=== PATIENT | female | born 1955 | race Caucasian/White ===

== ENCOUNTER → 2021-06-15 13:32 | Outpatient (CLI) | payer OTHER, SELFPAY ==
--- NOTE | 2021-06-15 | DI.RAD.S_ITS ---
PROCEDURE: XR ELBOW RT MIN 3V INDICATIONS: Pain in right elbow TECHNIQUE: 3 views of the elbow were acquired. COMPARISON: None. FINDINGS: Bones: No fractures or dislocations. No suspicious bony lesions. Soft tissues: No elbow joint effusion. No suspicious soft tissue calcifications. IMPRESSION: No evidence acute bony abnormality of the right elbow. If clinical suspicion and/or symptoms persist, further assessment with repeat plain films, or advanced imaging (e.g., CT, MRI, or bone scan) may be helpful for further assessment. Dictated by: Jeremias Orozco M.D. on 06/15/2021 at 17:46 Approved by: Jeremias Orozco M.D. on 06/15/2021 at 17:46
== END ==
PROVIDERS: PCP Physician Assistant; Referring Provider Physician Assistant; Visit Provider Physician Assistant
DX: M25.521 Pain in right elbow (principal)
CPT/HCPCS: 73080

== ENCOUNTER → 2023-05-30 11:23 | Outpatient (CLI) | payer MEDICARE, OTHER, SELFPAY ==
--- NOTE | 2023-05-30 11:26 | DI.US.S_ITS ---
PROCEDURE: US THYROID INDICATIONS: NODULE TECHNIQUE: Real-time scanning was performed of the thyroid gland, with image documentation. COMPARISON: None. FINDINGS: The thyroid appears heterogeneously echogenic measuring 4.6 x 1.1 x 1.3 cm on the right and 4.0 x 1.0 x 1.2 cm on left. The isthmus measures 3 mm in thickness. Nodule number: 1 Location: Upper pole, right lobe Size: 6 x 3 x 5 mm Composition: Solid Echogenicity: Hypoechoic Shape: Wider than tall Margins: Smooth Echogenic foci: None Total points: 3 ACR TI-RADS category: TI-RADS 3, mildly suspicious Nodule number: 2 Location: Upper pole, right thyroid Size: 6 x 3 x 6 mm Composition: Solid Echogenicity: Hypoechoic Shape: Wider than tall Margins: Small with Echogenic foci: None Total points: 3 ACR TI-RADS category: TI-RADS 3, mildly suspicious Nodule number: 3 Location: Mid pole, right thyroid Size: 23 x 28 x 9 mm Composition: Solid and cystic Echogenicity: Isoechoic Shape: Wider than tall Margins: Ill-defined Echogenic foci: Punctate echogenic foci Total points: 5 ACR TI-RADS category: TI-RADS 4, moderately suspicious. FNA indication Nodule number: 4 Location: Lower pole, right thyroid Size: 8 x 8 x 4 mm Composition: Hypoechoic Echogenicity: Hypoechoic Shape: Wider than tall Margins: Small with Echogenic foci: Punctate echogenic foci Total points: 7 ACR TI-RADS category: TI-RADS5 highly suspicious. Follow-up. Nodule number: 5 Location: Lower pole, right thyroid Size: 21 x 7 by 11 mm Composition: Solid and cystic Echogenicity: Isoechoic Shape: Wider than tall Margins: Indistinct Echogenic foci: None Total points: 2 ACR TI-RADS category: TI-RADS 2, not suspicious Nodule number: 6 Location: Lower pole left thyroid Size: 4 x 1 x 4 mm Composition: Solid Echogenicity: Hypoechoic Shape: Wider than tall Margins: Small with Echogenic foci: Punctate echogenic foci Total points: 7 ACR TI-RADS category: TI-RADS5 highly suspicious. Follow-up IMPRESSION: Recommend FNA of nodule 3, TI-RADS 4 measuring 23 x 28 x 9 mm in mid pole right thyroid. ACR TI-RADS definitions and recommendations: TI-RADS 1 (benign): 0 points. FNA not needed. TI-RADS 2 (not suspicious): 2 points. FNA not needed. TI-RADS 3 (mildly suspicious): 3 points. * FNA if 2.5 cm or larger, follow up if 1.5 cm or larger (at 1, 3, and 5 years). TI-RADS 4 (moderately suspicious): 4-6 points. * FNA if 1.5 cm or larger, follow up if 1 cm or larger (at 1, 2, 3, and 5 years). TI-RADS 5 (highly suspicious): 7 points or more. * FNA if 1 cm or larger, follow up if 0.5 cm or larger (every year for 5 years). Dictated by: Ernesto Mcknight M.D. on 05/30/2023 at 15:09 Approved by: Ernesto Mcknight M.D. on 05/30/2023 at 15:30
--- NOTE | 2023-05-30 11:26 | DI.RAD.S_ITS ---
Bone Density Report Name: MARLO SEGURA Age: 67 Sex: Female Ethnicity: White Date of : 1955 Indication: postmenopausal; screening for osteoporosis; Referring Provider: NIKITA SALMERON Study: Bone densitometry was performed. Exam Date: May 30, 2023 Accession number: [id number] Bone Density: Region BMD T-score Z-score Classification AP Spine(L1-L4) 0.752 -2.7 -0.9 Osteoporosis Femoral Neck (Left) 0.609 -2.2 -0.6 Osteopenia Total Hip (Left) 0.729 -1.7 -0.5 Osteopenia Femoral Neck (Right) 0.616 -2.1 -0.6 Osteopenia Total Hip (Right) 0.740 -1.7 -0.4 Osteopenia Total Hip Mean 0.734 -1.7 -0.5 Osteopenia World Health Organization criteria for BMD impression classify patients as: Normal (T-score at or above -1.0), Osteopenia (T-score between -1.0 and -2.5), or Osteoporosis (T-score at or below -2.5). 10-year Fracture Risk: FRAX not reported because: Some T-score for Spine Total or Hip Total or Femoral Neck at or below -2.5 Treated for osteoporosis Impression: The patient has osteoporosis, based on the Total Spine T-score. Discussion: It is important to ask patients whether they are taking their medications and to encourage continued and appropriate compliance with their osteoporosis therapies to reduce fracture risk. It is also important to review their risk factors and encourage appropriate calcium and vitamin D intakes, exercise, fall prevention and other lifestyle measures. Follow-Up: Consider a repeat BMD and Vertebral Fracture Assessment (VFA) exam in 2 years or sooner if medically necessary, to reassess this patient's status. Reported by: AGNIESZKA FELICIANO M.D. on 05/30/2023 12:20:00 PM.
== END ==
PROVIDERS: PCP Nurse Practitioner Family; Referring Provider Nurse Practitioner Family; Visit Provider Nurse Practitioner Family
DX: M81.8 Other osteoporosis without current pathological fracture (principal); E04.2 Nontoxic multinodular goiter; Z79.83 Long term (current) use of bisphosphonates
CPT/HCPCS: 76536; 77080

== ENCOUNTER → 2023-07-11 14:39 | Outpatient (CLI) | payer MEDICARE, OTHER, SELFPAY ==
[2023-07-13 14:44] LABS: Candida species Negative (Negative); Gardnerella vaginalis Negative (Negative); Trichomoas vaginalis Negative (Negative)
== END ==
PROVIDERS: PCP Nurse Practitioner Family; Visit Provider Physician Assistant Medical
DX: N89.8 Other specified noninflammatory disorders of vagina (principal)
CPT/HCPCS: 87480; 87510; 87660

== ENCOUNTER → 2023-07-17 13:55 | Outpatient (CLI) | payer MEDICARE, OTHER, SELFPAY ==
--- NOTE | 2023-07-17 | PATH_ITS ---
Note [facility] Accession Number: [id number] TESTS RESULT FLAG UNITS REF RANGE LAB Clinician Provided Cytology Information No. of containers..06 Previously Prepared Cytology Slide 35 Unknown Storage/container code(s) Source: RIGHT THYROID NODULE #3 DIAGNOSIS: RIGHT THYROID NODULE #3, FINE NEEDLE ASPIRATION. NEGATIVE FOR MALIGNANT CELLS. MARGINALLY ADEQUATE FOR EVALUATION. FEW FOLLICULAR GROUPS PRESENT. FAVOR BENIGN FOLLICULAR (GOITEROUS) NODULE (BETHESDA CATEGORY II), SEE COMMENT. COMMENT: MICROSCOPIC EXAMINATION REVEALS A HYPOCELLULAR/MILDLY CELLULAR ASPIRATE, COMPOSED OF COLLOID, FEW FOLLICULAR GROUPS (MORE THAN SIX GROUPS THAT ARE REQUIRED FOR ADEQUACY) WITHOUT SIGNIFICANT CYTOLOGIC OR ARCHITECTURAL ATYPIA, AND BACKGROUND MACROPHAGES. THESE FINDINGS FAVOR A BENIGN FOLLICULAR (GOITEROUS) NODULE. CORRELATION WITH CLINICAL AND RADIOGRAPHIC FINDINGS IS RECOMMENDED TO ENSURE THAT THE NODULE HAS BEEN ADEQUATELY SAMPLED. ACCORDING TO THE B[place]DA REPORTING SYSTEM FOR THYROID CYTOPATHOLOGY, THE RISK OF MALIGNANCY IN THE CATEGORY BENIGN-CATEGORY II IS 0-3%; THEREFORE RECOMMEND CONTINUED ULTRASOUND SURVEILLANCE WITH REPEAT FNA IF THE NODULE SIGNIFICANTLY INCREASES IN SIZE. Pathologist ICD10: 01 E04.2 Signed out by: Brennan Nagy MD, Pathologist NPI- [id number] Performed by: Aurelio Jackson, Media Relations Associate ([facility]) Gross description: 01 30 CC, COLORLESS, CLEAR RECIEVED: IN CYTOLYT WITH 8 ALCOHOL FIXED AND 8 QUICK STAINED SLIDES ALSO 1 RNA VIAL WILL ON 03-01-2025.VO /VDU 07/18/2023 1103 Local FLAG LEGEND: L-Low Normal,H-High Normal,LL-Alert Low,HH-Alert High <-Panic Low,>-Panic High,A-Abnormal,AA-Critical Abnormal Performed at: 01 =Z [facility] [address] [place] [address] [address], [place] [address] Madan Kelly MD, Performed at: 01 [facility] [address] [place] [address] [address], [place], [place] [id number] MD Madan Kelly MD Phone: [phone]
--- NOTE | 2023-07-17 13:56 | DI.US.S_ITS ---
PROCEDURE: US FINE NEEDLE ASPIRATION INDICATIONS: Nontoxic multinodular goiter TECHNIQUE: The indications, alternatives, benefits, risks, and complications of the procedure were explained to the patient. Written informed consent was obtained and placed in the chart. The area of interest was examined sonographically and a site was chosen for ultrasound guided percutaneous sampling. The skin was prepared and draped in the usual fashion, and anesthetized with 1% lidocaine infiltrated from the skin down to the lesion. Multiple passes were then performed, with contents emptied into an appropriate pathology specimen container. A bandage was applied to the area of access at completion of the study. COMPARISON: Ultrasound thyroid 05/30/2023. FINDINGS: Location(s) of lesion(s) sampled: Right lobe, nodule #3. On prior study [place]: 25 gauge hypodermic needles. Number of passes: 9 passes total (pathologist indicated he needs additional samples). Medications: 1% lidocaine for local anaesthesia. Complications: None. IMPRESSION: Successful ultrasound-guided right lobe thyroid #3. lesion fine needle aspiration, with cytology results pending. Note: Due to size criteria only the above lesion was biopsied as noted above. Dictated by: Ernesto Mcknight M.D. on 07/19/2023 at 16:33 Approved by: Ernesto Mcknight M.D. on 07/19/2023 at 16:36
== END ==
PROVIDERS: PCP Nurse Practitioner Family; Referring Provider Nurse Practitioner Family; Visit Provider Nurse Practitioner Family
DX: E04.2 Nontoxic multinodular goiter (principal)
CPT/HCPCS: 10005

== ENCOUNTER → 2023-08-01 10:54 | Outpatient (CLI) | payer MEDICARE, OTHER, SELFPAY ==
[2023-08-01 15:12] LABS: Urine N gonorrhoeae NOT DETECTED
[2023-08-01 15:16] LABS: Urine Chlamydia NOT DETECTED
== END ==
PROVIDERS: PCP Nurse Practitioner Family; Referring Provider Physician Assistant Medical; Visit Provider Physician Assistant Medical
DX: Z11.3 Encounter for screening for infections with a predominantly sexual mode of transmission (principal)
CPT/HCPCS: 87491; 87591

== ENCOUNTER → 2023-08-20 13:43 | Outpatient (CLI) | payer MEDICARE, OTHER, SELFPAY ==
[2023-08-21 06:10] LABS: RPR Screen Non Reactive (Non Reactive)
[2023-08-22 17:55] LABS: Hepatitis B Surface Antigen NEGATIVE s/c (NEGATIVE)
[2023-08-22 18:14] LABS: HIV 1 & 2 Ab/Ag 4th Gen Combo NEGATIVE (NEGATIVE); Hep C Virus Ab w/Reflex Quant NEGATIVE s/c (NEGATIVE)
== END ==
LOC: RESP 13:44
PROVIDERS: PCP Nurse Practitioner Family; Referring Provider Physician Assistant Medical; Visit Provider Physician Assistant Medical
DX: I10 Essential (primary) hypertension (principal); Z51.81 Encounter for therapeutic drug level monitoring; Z11.3 Encounter for screening for infections with a predominantly sexual mode of transmission
CPT/HCPCS: 36415; 86592; 86803; 87340; 87389; 93005

== ENCOUNTER → 2023-09-05 08:43 | Outpatient (CLI) | payer MEDICARE, OTHER, SELFPAY ==
--- NOTE | 2023-09-05 08:45 | DI.RAD.S_ITS ---
PROCEDURE: XR HIP W PEL IF DONE LT 2V INDICATIONS: Pain in left hip TECHNIQUE: 2 views of the hip were acquired. COMPARISON: None. FINDINGS: Bones: Moderate degenerative changes of the pubic symphysis. Mild degenerative changes of bilateral hip joints. No acute fracture or dislocation. Soft tissues: No suspicious soft tissue calcifications or masses. IMPRESSION: No acute bony abnormality. Dictated by: Meron Berrios M.D. on 09/05/2023 at 13:56 Approved by: Meron Berrios M.D. on 09/05/2023 at 13:57
== END ==
PROVIDERS: PCP Nurse Practitioner Family; Referring Provider Nurse Practitioner Family; Visit Provider Nurse Practitioner Family
DX: M25.552 Pain in left hip (principal)
CPT/HCPCS: 73502

== ENCOUNTER → 2023-09-10 12:05 | Outpatient (CLI) | payer MEDICARE, OTHER, SELFPAY ==
[2023-09-10 12:46] LABS: Appearance Urine UA CLEAR; Bilirubin Urine UA NEGATIVE (NEGATIVE); Color Urine UA YELLOW; Glucose Urine UA NEGATIVE (Negative); Ketones Urine UA NEGATIVE (NEGATIVE); Leukocyte Esterase Urine UA NEGATIVE (NEGATIVE); Nitrite Urine UA NEGATIVE (Negative); Occult Blood Urine UA TRACE-INTACT (Negative); Protein Urine UA NEGATIVE (Negative); Urobilinogen Urine UA 0.2 E.U./dL (0.2)
[2023-09-10 12:56] LABS: Bacteria Urine Few (2-10); RBC Urine None Seen (0-5/HPF); Squamous Epithelial Cell Urine 0-1 /HPF (0-5/HPF); Urine Volume 10mL (spun); WBC Urine 0-1/HPF (0-5/HPF)
[2023-09-10 12:57] LABS: Culture Indicated Urine Cult Not Indicated
[2023-09-10 14:06] LABS: Urine Chlamydia NOT DETECTED; Urine N gonorrhoeae NOT DETECTED
[2023-09-10 14:30] LABS: HIV 1 & 2 Ab/Ag 4th Gen Combo NEGATIVE (NEGATIVE)
[2023-09-11 08:22] LABS: RPR Screen Non Reactive (Non Reactive)
== END ==
PROVIDERS: PCP Nurse Practitioner Family; Referring Provider Nurse Practitioner Family; Visit Provider Nurse Practitioner Family
DX: R87.9 Unspecified abnormal finding in specimens from female genital organs (principal); N89.9 Noninflammatory disorder of vagina, unspecified
CPT/HCPCS: 36415; 81001; 86592; 87389; 87491; 87591

== ENCOUNTER 2023-10-14 03:57 | Emergency (ER) | payer MEDICARE, OTHER, SELFPAY ==
[2023-10-14 04:05] VITALS: BP 122/74; PULSE 80; RESP 18; TEMP 35.9; O2SAT 99
--- NOTE | 2023-10-14 04:10 | DI.RAD.S_ITS ---
PROCEDURE: XR HUMERUS RT 2V INDICATIONS: right upper arm pain TECHNIQUE: 2 views of the humerus were acquired. COMPARISON: None. FINDINGS: Bones: Impacted fracture of the surgical neck of the humerus. Fracture appears to extend into the greater tuberosity with mild displacement. No suspicious bony lesions. Soft tissues: No suspicious soft tissue calcifications. Small foci of rotator cuff calcific tendinopathy. IMPRESSION: Comminuted and impacted fracture of the right humeral head/neck. Findings are concordant with preliminary interpretation provided by [facility]. Dictated by: Jermain Gill M.D. on 10/14/2023 at 7:26 Approved by: Jermain Gill M.D. on 10/14/2023 at 7:27
--- NOTE | 2023-10-14 04:15 | PC.NURSE ---
pt was walking up the stairs when she tripped and fell hurting her right upper arm, pt unable to move arm d/t pain, right shoulder lower than the left shoulder, arm placed in a sling upon arrival
[2023-10-14] MEDS: ONDANSETRON 4 MG ODT SL (04:49)
--- NOTE | 2023-10-14 04:49 | ED_ITS ---
HPI - General Adult General Chief complaint: Extremity Injury, Upper Stated complaint: right arm pain Time Seen by Provider: 10/14/23 04:09 Source: patient Mode of arrival: Ambulatory Limitations: no limitations History of Present Illness HPI narrative: 67-year-old female with history of hypertension. Patient had gone down the stairs tonight, tripped over box while walking and fell onto her right arm. She states she thinks it is broken. This happened about 2:00 a.m. this morning. She denies any numbness or tingling protein 16 move normally the elbow wrist and hand. She does feel that the muscles feel tight behind in the scapular area. She states that her shoulder has dislocated before but states it is only ever been treated by chiropractors. She is never required reduction in the emergency department or with Orthopedic surgery. Patient denies any other trauma, denies hitting head, no loss of consciousness, no neck pain, no chest pain or shortness of breath. She does feel nauseated. She states when she throws up she sometimes passes out. She states she did not take 2 500 mg tablet Tylenol which she states has been helpful. He defers any narcotics for pain. She was requesting something for nausea. Related Data Home Medications Medication Instructions Recorded Confirmed losartan 100 1 tab PO DAILY 07/11/23 08/01/23 mg-hydrochlorothiazide 12.5 mg tablet Previous Rx's Medication Instructions Recorded ondansetron 4 mg disintegrating 4 mg PO QID PRN nausea and 10/14/23 tablet vomiting #14 tabs tramadol 50 mg tablet 50 mg PO Q6H PRN pain #10 tabs 10/14/23 Allergies Allergy/AdvReac Type Severity Reaction Status Date / Time diazepam [From Valium] AdvReac Intermediate Vomiting Verified 08/01/23 10:06 Review of Systems Review of Systems ROS Unobtainable: All systems reviewed & are unremarkable except as noted in HPI and below Patient History Medical History (Updated 10/14/23 @ 05:10 by Kristy Paredes DO) Depression (~2006) ADD (attention deficit disorder) (~2019) Osteoporosis (~2016) Acquired syphilis (~1979) Mumps Measles Chicken pox Herpes Abnormal Pap smear of cervix (~1986) Hypertension (~2014) Skin cancer, basal cell (~1996) Surgical History (Updated 07/26/23 @ 20:41 by Christiane Nance) Anesthesia History of abdominoplasty (~2015) History of breast augmentation (~2013) History of tooth extraction (~2013) History of endometrial ablation (~2009) Family History (Updated 07/26/23 @ 20:45 by Christiane Nance) Father Alzheimer's disease Diabetes mellitus History of heart disease Hyperlipidemia Hypertension Mental health problem Stroke Mother Cancer Diabetes mellitus Hypertension Hyperlipidemia Mental health problem Sister Thyroid cancer Hypertension Hyperlipidemia Grandmother Cancer Grandmother Cancer Social History Smoking Status: Never smoker Smoking Status: Never smoker Exam Narrative Exam Narrative: GEN: Patient appears in moderate distress. HEAD: No evidence of trauma, no raccoon/Lehman sign. NECK: Nontender, painless range of motion, trachea midline Negative Nexus criteria, there is no midline line tenderness, distracting injury, altered mental status, neuro deficit, recent EtOH. EYES: PERRLA, EOMI ENT: External inspection normal, trachea is midline, Nares are clear, no septal hematoma, no dental or oral injury, airway is normal and with normal occlusion, No bony tenderness RESP: Chest is nontender and has symmetric movement, no ecchymosis, breath sounds are normal no crackles, wheezes or rales CVS: Heart sounds are normal, no murmur noted, No JVD. ABG/GI: Nontender, soft, normal bowel sounds, no distention, no organomegaly NEURO: Oriented AOx3, neuro is grossly intact, sensation and motor is normal all 4 extremities moving, cranial nerves II through XII are intact, GCS is 15 PSYCH: Normal mood and affect SKIN: Intact, warm and dry, no crepitus and without decubitus BACK: No CVA tenderness, no vertebral tenderness, no step-off's, no crepitus EXT: Patient has pain over the proximal humerus, she has 2+ radial pulses bilaterally equal air value tester, patient has sensation throughout bilateral upper extremities. She has normal flexion-extension abduction abduction of the fingers, wrist and normal flexion-extension of the elbow on the right. Normal range of motion of the left upper extremity and bilateral lower extremities. Initial Vital Signs Initial Vital Signs: Vital Signs Temperature 96.6 F L 10/14/23 04:05 Pulse Rate 80 10/14/23 04:05 Respiratory Rate 18 10/14/23 04:05 Blood Pressure 122/74 10/14/23 04:05 Pulse Oximetry 99 05/27/24 04:05 Oxygen Delivery Method Room Air 10/14/23 04:05 Course Orders Ordered: ED Orders 10/14/23 04:09 XR shoulder RT min 2V Stat 10/14/23 04:10 XR humerus RT 2V Stat Discontinued Medications Ondansetron HCl (Ondansetron 4 Mg Odt) 4 mg SL NOW ONE Stop: 10/14/23 04:45 Last Admin: 10/14/23 04:49 Dose: 4 mg Documented By: Ondansetron HCl (Ondansetron 4 Mg Odt Prepack) 1 bottle MISC DIRECTED ONE Stop: 10/14/23 05:19 Last Admin: 10/14/23 05:33 Dose: 1 bottle Documented By: ALANA Tramadol HCl (Tramadol 50 Mg Prepack) 1 bottle MISC DIRECTED ONE Stop: 10/14/23 05:19 Last Admin: 10/14/23 05:33 Dose: 1 bottle Documented By: ALANA Vital Signs Vital signs: Vital Signs - 8 hr 10/14/23 04:05 10/14/23 05:11 10/14/23 05:30 Temperature 96.6 F L Pulse Rate 80 83 Respiratory Rate 18 Blood Pressure 122/74 136/71 Pulse Oximetry 99 98 Oxygen Delivery Method Room Air 10/14/23 05:30 Temperature Pulse Rate 81 Respiratory Rate Blood Pressure Pulse Oximetry 100 Oxygen Delivery Method Medical Decision Making Imaging Data Extremity x-ray #1: Radiologist's Impression: Impaction fracture of the surgical neck of the humerus also involves the greater tuberosity which is mildly displaced the inferior aspect, small foci of rotator cuff calcific tendinopathy. Mild glenohumeral and acromioclavicular osteoarthritis. [facility] Narrative Medical decision making narrative: 67-year-old female with ground level fall, denies hitting her head neck or back pain but does have pain of the humerus and has impacted fracture of the surgical neck of the humerus. Patient is neurovascularly intact. Placed in sling. She would Tylenol prior to arrival she defers any narcotics. Take some antinausea medication. Plan for follow up with Orthopedic surgery. Discharge Plan Departure Patient Disposition: Home Clinical Impression: Fracture of proximal end of humerus Instructions: DI for Humeral Fracture Activity Restrictions/Additional Instructions: Follow-up with orthopedic surgery in the next week, call to set up an appointment. Contact information is included. You can take Tylenol to a 1000 mg every 6 hours as needed for pain. If in adequate you can take Ultram 1-2 tablets every 6 hours as needed for pain. This medication can make you sleepy do not drive, perform hazardous activities or make any major decisions while taking it. This medication will make you constipated please take a stool softener once to twice daily until stools are soft and regular. You can take Zofran 1 tablet every 6 hours as needed for nausea. Prescription was sent to [facility] in [place] Splint Care: Keep splint clean and dry. Elevated affected body part to decrease swelling. OK to use ice pack on the affected body part. Use for 15-20 minutes each time, for 5-6x per day. If you develop worsening pain, numbness, tingling, discoloration of the affected body part, loosen the splint by loosening the RY wrap, and either see your doctor for an urgent re-assessment, or return to the Emergency Department. Return to the Emergency Department for any new or worsening symptoms. Prescriptions: New ondansetron 4 mg tablet,disintegrating 4 mg PO QID PRN (Reason: nausea and vomiting) Qty: 14 0RF tramadol 50 mg tablet 50 mg PO Q6H PRN (Reason: pain) Qty: 10 0RF No Action losartan-hydrochlorothiazide 100-12.5 mg tablet 1 tab PO DAILY Referrals: Emory Casas MD [Physician] - Jenniffer Reyes RN [Primary Care Provider] - Stand Alone Forms: Patient Portal/API
[2023-10-14 05:11] VITALS: PULSE 83; O2SAT 98
[2023-10-14 05:30] VITALS: BP 136/71; PULSE 81; O2SAT 100
[2023-10-14] MEDS: TRAMADOL 50 MG PREPACK 1 BOTTLE MISC (05:33)
[2023-10-14] MEDS: ONDANSETRON 4 MG ODT PREPACK 1 BOTTLE MISC (05:33)
== END 2023-10-14 05:49 | disposition home or self-care (01) ==
PROVIDERS: Emergency Provider Emergency Medicine; PCP Nurse Practitioner Family
DX: S42.291A Other displaced fracture of upper end of right humerus, initial encounter for closed fracture (principal); W18.09XA Striking against other object with subsequent fall, initial encounter; Y93.01 Activity, walking, marching and hiking
CPT/HCPCS: 73060; 99283

== ENCOUNTER → 2023-10-30 12:43 | Outpatient (CLI) | payer MEDICARE, OTHER, SELFPAY ==
--- NOTE | 2023-10-30 12:44 | DI.CT.S_ITS ---
PROCEDURE: CT ABDOMEN PELVIS WO CON INDICATIONS: Calculus of kidney TECHNIQUE: Axial sections were acquired from the lung bases to the pubic symphysis. Coronal and sagittal reformats were performed. For radiation dose reduction, the following was used: automated exposure control, adjustment of mA and/or kV according to patient size. COMPARISON: None. FINDINGS: Image quality: Diagnostic. Lower Chest: No significant findings. URINARY: Right Kidney: There is an exophytic, lobulated intermediate density mass off the midpole of the right kidney which is incompletely characterized in the absence of intravenous contrast. No hydronephrosis or nephrolithiasis. Right Ureter: No ureterolithiasis or hydroureter. Left Kidney: An ill-defined low-density cystic lesion is present within the left renal cortex. No left nephrolithiasis. Left Ureter: No hydroureter or ureterolithiasis. Bladder: Normal wall thickness. No stones. ABDOMEN: Liver: No contour-deforming solid mass. Gallbladder: No radiopaque gallstones or wall thickening. Biliary ducts: No biliary dilation. Pancreas: No ductal dilation. Spleen: Size is within normal limits. Adrenal Glands: No adrenal nodules. Stomach and Bowel: Normal colonic caliber, without significant wall thickening. The appendix is thin walled and gas filled. There are scattered sigmoid diverticula. No evidence for diverticulitis. Peritoneum: No abnormal intraperitoneal fluid. No free air. Ventral Wall: No hernia. Abdominal Nodes: No enlarged retroperitoneal or mesenteric lymph nodes. Vessels: Aorta and inferior vena cava are normal in size. PELVIS: Pelvic Organs: Unremarkable. Pelvic Nodes: Unremarkable. Miscellaneous: No inguinal hernias are seen. 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 However, the vertebral body demonstrates overall normal height with normal appearing ribs present. Bones are otherwise unremarkable. IMPRESSION: 1. No hydronephrosis, nephrolithiasis, hydroureter, or ureterolithiasis. 2. Intermediate density right renal mass. Neoplasm cannot be excluded. Renal mass protocol CT is recommended to further characterize this finding. 3. No acute intra-abdominal findings. Normal appendix. Diverticulosis. No acute diverticulitis. Dictated by: Yeny Chandler M.D. on 10/30/2023 at 13:41 Approved by: Yeny Chandler M.D. on 10/30/2023 at 13:49
== END ==
LOC: CT 12:44
PROVIDERS: PCP Nurse Practitioner Family; Referring Provider Nurse Practitioner Family; Visit Provider Nurse Practitioner Family
DX: N20.0 Calculus of kidney (principal); N28.89 Other specified disorders of kidney and ureter; K57.30 Diverticulosis of large intestine without perforation or abscess without bleeding
CPT/HCPCS: 74176